=== PATIENT | male | born 1965 | race Caucasian/White ===

== ENCOUNTER → 2016-06-28 | Outpatient (CLI) | payer MEDICARE ==
[~2016-06-28] MED LIST: AML5T PO; ASPI-586 PO; ATOR20TA PO; CEPH500C PO; CLON1TAB PO; CLOP75TA28 PO; CLOP75TA3 PO; FRSM20T PO; FRSM40T GT; FRSM40T PO; FURO-124 PO; GABA300C PO; GBPN300C PO; GLIM2TAB PO; HYDR-229 PO; HYDR-3708 PO; HYDR-3921 PO; INSU100C3 SQ; INSU100C7 SQ; INSU100I16 SC; INSU100I30 SQ; INSU100V32 SQ; LEVO50TA6 PO; LIRA0.6P SQ; LISI-595 PO; LSNP20T PO; METO25TA60 PO; METO5TAB6 PO; NF-LUBIP24 PO; ONDN4T PO; OXYC15TA79 PO; PANT40TA3 PO; POTA20TA15 PO; POTA20TA7 PO; SITA100T PO
== END ==
LOC: EMS 10:00
PROVIDERS: ATTEND Family Medicine
DX: M25.552 Pain in left hip (principal); W19.XXXA Unspecified fall, initial encounter; Z99.2 Dependence on renal dialysis; R53.1 Weakness